=== PATIENT | female | born 1965 ===

== ENCOUNTER → 2016-10-07 | Day surgery (SDC) | payer OTHER ==
[2016-10-06 13:11] VITALS: Ht 168.9 cm; Wt 75.0 kg
[~2016-10-07] VITALS: Ht 168.9 cm; Wt 75.0 kg
[~2016-10-07] MED LIST: 500ML BSSPLUS 0.5ML EPI1:1000 IRRIG ONE; ACETAMINOPHEN 325 MG TAB PO PRN; ACETAMINOPHEN/CODEINE 300/30MG TAB PO ONE; ATROPINE SULFATE 1% OP OINT PER APPLICATION CHARGE ONE; ATROPINE SULFATE 1% OP SOLN 2 ML BTL ONE; BSS FLUSH ONE; BUPIVACAINE HCL 0.75% 10 ML AMP/VIAL ONE; CEFAZOLIN SOD 1 GM VIAL ONE; DEXAMETHASONE SOD INJ 4 MG/ML VIAL ONE; DiphenhydrAMINE HCL 50 MG/ML VIAL IV PRN; EpINEphrine INJ 1MG/ML AMP 1 MG/ML AMP ONE; FENTANYL CITRATE INJ 50 MCG/1 ML 2 ML VIAL IV PRN; FENTANYL CITRATE INJ 50 MCG/1 ML 2 ML VIAL ONE; HYALURONIDASE HUMAN 150 UNIT/ML INJ ONE; INDOCYANINE GREEN 25 MG/10 ML ONE; LACTATED RINGER'S 1000ML 1,000 ML IV PRN; LACTATED RINGER'S 1000ML 500 ML IV SCH; LEVO50TA6 PO; LIDOCAINE HCL 2% 2 ML VIAL (20MG/ML) ONE; LIDOCAINE MPF 4% INJ INJ ONE; METOCLOPRAMIDE HCL INJ 5 MG/ML 2 ML VIAL IV PRN; MIDAZOLAM HCL 1 MG/ML 2ML VIAL ONE; NEOMYCIN/POLYMYX/DEXAMETH OP OINT PER APP CHARGE ONE; NURSING VERBAL MED ORDER ONE; OCUCOAT 1 ML SOLN IO ONE; ONDANSETRON INJ 2 MG/ML 2 ML VIAL IV PRN; ONDANSETRON INJ 2 MG/ML 2 ML VIAL ONE; PHENYLEPHRINE HCL 10% OP SOLN PER DROP CHARGE ONE; PROPARACAINE 0.5% OP SOLN PER DROP CHARGE OPR SCH; PROPOFOL IV EMULSION 10 MG/ML 20 ML VIAL IV ONE; SCOPOLAMINE 1.5 MG TDSY TD ONE; TIMOLOL MALEATE 0.5% OP SOLN PER DROP CHARGE ONE; TRIAMCINOLONE ACETONIDE OPHTH 40 MG/ML VIAL STERILE IO ONE
[2016-10-07] MEDS: PHENYLEPHRINE HCL 2.5% OP SOLN PER DROP CHARGE OPR SCH ×2 (06:41→06:46)
[2016-10-07] MEDS: TROPICAMIDE 1% OP SOLN PER DROP CHARGE OPR SCH ×2 (06:42→06:47)
--- NOTE | 2016-10-07 06:54 | History & Physical Bridge - [place] ---
H&P Re-Evaluation Bridge Note: pt has retinal detachment in the right eye and is here for scleral buckle and vitrectomy right eye. I have examined the patient, reviewed the History & Physical and in the interval since the performance of the History & Physical I have noted the following changes of clinical significance: No changes noted
--- NOTE | 2016-10-07 09:40 | Discharge Instructions-SurgCtr ---
Discharge Instructions Date of Service October 07, 2016. Visit Reason for Visit: Right Eye Retinal Detachment Discharge Discharge Diagnosis / Problem: same Discharge Goals Goal(s): Improve function Activity Recommendations Activity Limitations: per Instructions/Follow-up section Anesthesia . Post Anesthesia Instructions: If you have had General Anesthesia or IV Sedation: * Do not drive today. * Resume driving when surgeon permits. * Do not make important decisions or sign legal documents today. * Call surgeon for: 1. Temperature elevations greater than 101 degrees F. 2. Uncontrollable pain. 3. Excessive bleeding. 4. Persistent nausea and vomiting. 5. Medication intolerance (nausea, vomiting or rash). * For nausea and vomiting use only clear liquids such as: tea, soda, bouillon until nausea subsides, then gradually increase diet as tolerated. * If you have any concerns or questions, call your surgeon's office. If physician is unavailable and it is an emergency, call 911 or go to the nearest emergency room. . Instructions / Follow-Up Instructions / Follow-Up * May take Tylenol #3 if needed for discomfort. * Do NOT lay flat on back and position head as follows: face down or left side down * Do NOT remove green bracelet until instructed to do so by your surgeon and follow these precautions: * No air travel * No travel above 2500 feet * No nitrous oxide (N2O). * Do NOT remove eye shield. * NO straining, heavy lifting (>15 pounds) or bending below waist. * Avoid getting water or soap directly into operative eye. * Do NOT rub eye. If you experience increasing eye pain not relieved by medication, please contact us immediately at [phone]. If you are unable to reach someone at the above number, call [phone] and ask to speak with the EYE DOCTOR PELT GRADER. Inform them that you are a Dr. Golden patient who had recent surgery. Diet Recommendations Home Diet: resume previous diet Procedures Procedures Performed: Right Eye 23 Gauge Vitrectomy, Scleral Buckle, SF6 Gas Insertion Pending Studies Studies pending at discharge: no Medical Emergencies . Who to Call and When: Medical Emergencies: If at any time you feel your situation is an emergency, please call 911 immediately. . Non-Emergent Contact Non-Emergency issues call your: Processing Manager . . "Provider Documentation" section prepared by Jeremie Golden. .
--- NOTE | 2016-10-07 09:50 | [facility] Operative Report ---
Operative Report Date of Service October 07, 2016. Operative Report PREOPERATIVE DIAGNOSIS: Retinal detachment, right eye. ICD 10: H33.021 POSTOPERATIVE DIAGNOSIS: same. PROCEDURE: 1. Scleral buckle with #41 band and #72 sleeve. 2. Pars plana vitrectomy, 23 gauge. 2. Fluid-air exchange. 3. Endolaser. 4 Air-gas exchange with SF6 20%. 5. SubTenon's Triescence 20mg. All to the right eye. CPT CODE: 42035 SURGEON: Jeremie Golden D.O. COMPLICATIONS: None. ESTIMATED BLOOD LOSS: None. SPECIMENS: None. ANESTHESIA: General with LMA and RBB INDICATIONS FOR PROCEDURE: Surgery is indicated to decrease risk of vision loss and potentially improve vision. CONSENT: The risks, benefits and alternatives were discussed with the patient including but not limited to decreased visual acuity, failure to achieve desired results, loss of the eye, infection, pain, glaucoma, lens changes, retinal tears, retinal detachment, the need for more procedures, drooping of the eyelid, blindness, and double vision. The patient is aware of risks and consents to the surgery. Consent is signed and on the chart. OPERATION AND FINDINGS: The patient was brought to the operating room where the patient was identified by name, date, and medical record number. The surgical site was confirmed with the informed written consent. The patient was sedated by the anesthesiology team and a LMA was placed. The patient was then prepped and draped in the usual sterile manner for retinal surgery. A wire lid speculum was placed and a 360 conjunctival peritomy was performed. Curved Salvador's scissors were used to button hole the Tenon's capsule in all four oblique quadrants. A 50:50 mixture of 4% lidocaine and 0.75% bupivacaine was administered in a standard retrobulbar fashion. A total of 3 ml was administered without difficulty. Next all four rectus muscles were isolated with 2-0 silk ties and a 4mm buckle bed was prepared with 5-0 nylon sutures in each quadrant. The was noted scleral thinning in both superior quadrants so the mattress sutures were placed near the horizontal rectus muscles were there was no thinning. The anterior bite was 3.5 to 4mm posterior to the muscle insertion. A 41 style silicone band was placed under all four rectus muscles and mattress sutures and reapproximated in the superior nasal quadrant with a style 72 sleeve. The sutures were tied and the knots were rotated posteriorly and the buckle height was adjusted appropriately. Next 23-gauge trocar cannulas were placed 3.75 mm posterior to surgical limbus in the inferior temporal, superior nasal and superior temporal quadrants. The inferior temporal quadrant was used for the infusion cannula. Intravitreal position was verified prior to turning the infusion on. A light pipe and vitrector were introduced into the eye and the BIOM wide angle viewing system was brought into place. Posterior inspection revealed a retinal detachment extending from 6:00 to 9 o' clock extening into the inferior macula right up to the fovea and there was noted previous laser some of which was detached. The retina was thinned and there were cystic changes. There was an old retinal tear at 7:30 that was detached. Good scleral buckle height was noted. A core vitrectomy was performed and the vitreous base was shaved for 360 degrees and no other definitive retinal breaks were noted. Next, the drainage retinotomy was fashioned temporal to the macula. Subretinal fluid was removed from this. It was noted to be thick and proteinaceous. A fluid air exchange was performed for a complete air fill of the eye after which an endolaser probe was introduced into the eye and used to fashion laser along the scleral buckle indentation and the old laser and all retinal defects and around the drainage retinotomy site. Next, air gas exchange with SF6 20% was performed for complete gas fill of the eye. The trocar cannulas were removed and closed with 7-0 Vicryl suture and found to be airtight. The conjunctival peritomy was reapproximated with multiple interrupted 7-0 Vicryl sutures. The intraocular pressure was found to be within normal limits by palpation and subconjunctival injections of Kefzol and Dexamethasone were administered inferiorly and superiorly. A subTenon's injection of Triescence 20mg was placed inferiorly. The wire lid speculum was removed Maxitrol and Atropine ointment and timolol were applied to the surface of the eye. A light patch and shield were taped over the eye and the patient left the Operating Room in stable condition having tolerated the procedure well. DISPOSITION: A gas bracelet was placed on the patient's wrist and gas precautions reviewed as well as the positioning instructions. The patient has an appointment the following morning in the Ophthalmology Clinic. The patient is to call immediately if there are any problems overnight. I attest to the content of the Intraoperative Record and any orders documented therein. Any exceptions are noted below.
--- NOTE | 2016-10-07 10:44 | Anesthesia Progress Nt - [facility] ---
Anesthesia Post Op Note Date & Time October 07, 2016 at 10:43 Vital Signs Pain Intensity: 0 Vital Signs Past 12 Hours Date Time Temp Pulse Resp B/P Pulse Ox O2 Delivery O2 Flow Rate FiO2 10/07/16 10:38 60 16 10/07/16 10:38 61 16 99 10/07/16 10:36 135/88 10/07/16 10:35 36.1 51 20 135/88 99 Room Air 10/07/16 10:33 56 17 99 10/07/16 10:33 57 17 10/07/16 10:31 130/89 10/07/16 10:28 56 24 10/07/16 10:28 58 24 98 10/07/16 10:26 129/90 10/07/16 10:23 60 16 10/07/16 10:23 60 16 99 10/07/16 10:21 133/92 10/07/16 10:18 54 18 100 10/07/16 10:18 53 18 10/07/16 10:16 122/94 10/07/16 10:13 61 15 10/07/16 10:13 61 15 100 10/07/16 10:11 122/90 10/07/16 10:08 63 13 10/07/16 10:08 63 13 100 10/07/16 10:06 123/87 10/07/16 10:03 59 14 10/07/16 10:03 60 14 100 10/07/16 10:01 126/92 10/07/16 09:58 63 19 100 10/07/16 09:58 63 19 10/07/16 09:56 128/92 10/07/16 09:53 36.0 70 12 122/95 100 Mask 6 10/07/16 09:53 71 10/07/16 09:53 71 122/95 100 10/07/16 06:51 36.8 85 18 122/80 98 Room Air Notes Mental Status: alert / awake / arousable, participated in evaluation Pt Amnestic to Procedure: Yes Nausea / Vomiting: adequately controlled Pain: adequately controlled Airway Patency, RR, SpO2: stable & adequate BP & HR: stable & adequate Hydration State: stable & adequate Anesthetic Complications: no major complications apparent Pt doing well.
[2016-10-07 10:49] VITALS: TEMP 36.4
[2016-10-07 11:28] VITALS: BP 134/87; PULSE 66; O2SAT 99
== END | disposition home or self-care (01) ==
LOC: X.SURG 06:24
PROVIDERS: ATTEND Ophthalmology
DX: H33.021 Retinal detachment with multiple breaks, right eye (principal); Z83.49 Family history of other endocrine, nutritional and metabolic diseases; Z83.3 Family history of diabetes mellitus; Z82.3 Family history of stroke